=== PATIENT | female | born 1975 | race Two or more races ===

== ENCOUNTER 2021-08-14 19:58 | Emergency (ER) | payer SELFPAY ==
[~2021-08-14] VITALS: Ht 152.4 cm; Wt 67.1 kg
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
--- NOTE | 2021-08-14 21:39 | NUR ---
AT BED SIDE
[2021-08-14] MEDS ORDERED: ONDANSETRON HCL/PF 4 MG/2 ML VIAL ONE (21:53)
[2021-08-14] MEDS ORDERED: MORPHINE SULFATE INJ 4 MG/ML DISP.SYRIN ONE (21:53)
[2021-08-14] MEDS ORDERED: TDAP [DIPH/PERTUSSIS/TET] 0.5 ML VIAL IM ONE ×2 (21:54→22:00)
[2021-08-14] MEDS ORDERED: MORPHINE SULFATE INJ 2 MG/ML DISP.SYRIN IV ONE (22:00)
[2021-08-14] MEDS ORDERED: ONDANSETRON HCL/PF 4 MG/2 ML VIAL IVP ONE (22:00)
[2021-08-14] MEDS ORDERED: GABA-532 PO (23:43)
[2021-08-14] MEDS ORDERED: TRAM50TA2 PO (23:45)
--- NOTE | 2021-08-14 23:54 | NUR ---
Patient discharged to home in stable condition. Written and verbal after care instructions given. Patient verbalizes understanding of instruction.
[2021-08-15 00:13] VITALS: BP 104/53
== END 2021-08-14 23:55 | disposition home or self-care (01) ==
LOC: ER 20:06
DX: S81.012A Laceration without foreign body, left knee, initial encounter (principal); S00.83XA Contusion of other part of head, initial encounter; J34.2 Deviated nasal septum; M25.472 Effusion, left ankle; Y08.89XA Assault by other specified means, initial encounter; Y93.89 Activity, other specified; Y92.89 Other specified places as the place of occurrence of the external cause; Y99.8 Other external cause status
CPT/HCPCS: 70450; 70486; 71045; 73610; 90471; 90715; 96374; 96375; 99285; J2270; J2405

== ENCOUNTER 2021-09-17 13:00 | Emergency (ER) | payer SELFPAY ==
[~2021-09-17] VITALS: Ht 157.5 cm; Wt 63.5 kg
[~2021-09-17 13:00] MED LIST: GABA-532 PO; TRAM50TA2 PO
[2021-09-17 13:11] VITALS: BP 98/77
--- NOTE | 2021-09-17 13:40 | NUR ---
SEEN AND EXAMINED BY
[2021-09-17] MEDS ORDERED: DIAZ5TAB4 PO (13:42)
[2021-09-17] MEDS ORDERED: GABA-532 PO (13:42)
--- NOTE | 2021-09-17 13:56 | NUR ---
Patient discharged to home in stable condition. Written and verbal after care instructions given. Patient verbalizes understanding of instruction.
== END 2021-09-17 14:00 | disposition home or self-care (01) ==
LOC: ER 13:09
DX: M54.2 Cervicalgia (principal); M54.59 Other low back pain; M25.512 Pain in left shoulder

== ENCOUNTER 2021-09-25 17:13 | Emergency (ER) | payer SELFPAY ==
[~2021-09-25] VITALS: Ht 157.5 cm; Wt 65.3 kg
[2021-09-25 17:13] VITALS: BP 124/88
[~2021-09-25 17:13] MED LIST changes: +DIAZ5TAB4 PO
[2021-09-25] MEDS ORDERED: HYDR-4303 PO (18:36)
--- NOTE | 2021-09-25 18:44 | NUR ---
Patient discharged to home in stable condition. Written and verbal after care instructions given. Patient verbalizes understanding of instruction.
== END 2021-09-25 18:48 | disposition home or self-care (01) ==
LOC: ER 17:18
DX: M54.2 Cervicalgia (principal); Z76.0 Encounter for issue of repeat prescription

== ENCOUNTER 2021-10-12 13:30 | Emergency (ER) | payer SELFPAY ==
[~2021-10-12] VITALS: Ht 157.5 cm; Wt 67.1 kg
[~2021-10-12 13:30] MED LIST changes: +HYDR-4303 PO
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
--- NOTE | 2021-10-12 14:10 | NUR ---
AT BEDSIDE FOR EVAL.
--- NOTE | 2021-10-12 14:23 | NUR ---
UNABLE TO ESTABLISHED IV LINE. AWARE.
--- NOTE | 2021-10-12 14:27 | NUR ---
CALLED FOR MIDLINE.
[2021-10-12 14:50] LABS: BASOPHILS % (AUTO) 0.5 % (0.0-2.0); EOSINOPHILS % (AUTO) 0.1 % (0.0-6.0); HEMATOCRIT 33 % (33-45); HEMOGLOBIN 10.6 g/dL (11.5-14.8); LYMPHOCYTES # (AUTO) 1.1 K/uL (0.8-4.8); LYMPHOCYTES % (AUTO) 28.5 % (20.0-44.0); MEAN CORPUSCULAR HGB CONC 32 g/dl (31.0-36.0); MEAN CORPUSCULAR VOLUME 84 fL (82-100); MONOCYTES # (AUTO) 0.4 K/uL (0.1-1.30); NEUTROPHILS # (AUTO) 2.3 K/uL (1.8-8.9); NEUTROPHILS % (AUTO) 60.9 % (43.0-81.0); PLATELET COUNT (AUTO) 291 K/uL (150-450); RED BLOOD CELL COUNT(AUTO) 3.92 MIL/uL (4.0-5.2); WHITE BLOOD COUNT (AUTO) 3.8 K/uL (4.3-11.0)
[2021-10-12] MEDS ORDERED: MORPHINE SULFATE INJ 2 MG/ML DISP.SYRIN IV ONE (15:00)
[2021-10-12] MEDS ORDERED: IOHEXOL-350 100 ML VIAL IV ONE (15:00)
--- NOTE | 2021-10-12 15:00 | NUR ---
TAKEN TO CT
[2021-10-12] MEDS ORDERED: IV NS 0.9% 250 ML IV ONE (15:01)
[2021-10-12] MEDS ORDERED: MORPHINE SULFATE INJ 4 MG/ML DISP.SYRIN ONE (15:05)
[2021-10-12 15:17] LABS: ALANINE AMINOTRANSFERASE 12 U/L (12-78); ALBUMIN 3.5 g/dL (3.4-5.0); ALKALINE PHOSPHATASE 116 U/L (46-116); ASPARTATE AMINOTRANSFERASE 12 U/L (15-37); BILIRUBIN,DIRECT 0.1 mg/dL (0.0-0.2); BILIRUBIN,TOTAL 0.3 mg/dL (0.2-1.0); CALCIUM, SERUM 8.8 mg/dL (8.5-10.1); CARBON DIOXIDE 23 mmol/L (21-32); CHLORIDE 107 mmol/L (98-107); CREATININE 0.8 mg/dL (0.6-1.3); GLUCOSE 109 mg/dL (74-106); LIPASE 289 U/L (73-393); POTASSIUM 3.1 mmol/L (3.5-5.1); SODIUM SERUM 141 mmol/L (136-145); TOTAL PROTEIN, SERUM 7.9 g/dL (6.4-8.2); UREA NITROGEN, BLOOD 17 mg/dL (7-18)
[2021-10-12] MEDS ORDERED: CYCL5TAB PO (15:38)
[2021-10-12] MEDS ORDERED: IBUP-1957 PO (15:38)
[2021-10-12] MEDS ORDERED: KETOROLAC TROMETHAMINE INJ 30 MG/ML VIAL ONE (15:43)
[2021-10-12] MEDS ORDERED: CYCLOBENZAPRINE 10 MG TABLET ONE (15:45)
--- NOTE | 2021-10-12 15:53 | NUR ---
IV removed. Catheter intact and site benign. Pressure and 4x4 applied to site. No bleeding noted.Patient discharged to home in stable condition. Written and verbal after care instructions given. Patient verbalizes understanding of instruction.
[2021-10-12 15:55] VITALS: BP 118/74
[2021-10-12] MEDS ORDERED: KETOROLAC TROMETHAMINE INJ 30 MG/ML VIAL IV ONE (16:00)
[2021-10-12] MEDS ORDERED: CYCLOBENZAPRINE 10 MG TABLET PO ONE (16:00)
== END 2021-10-12 15:55 | disposition home or self-care (01) ==
LOC: ER 13:33
DX: R10.33 Periumbilical pain (principal); M54.9 Dorsalgia, unspecified; Z90.49 Acquired absence of other specified parts of digestive tract; Z79.899 Other long term (current) drug therapy; W18.39XA Other fall on same level, initial encounter; Y93.89 Activity, other specified; Y92.89 Other specified places as the place of occurrence of the external cause; Y99.8 Other external cause status
CPT/HCPCS: 36415; 71275; 74174; 80048; 80076; 83690; 84484; 85025; 93005; 96374; 99291; J2270; J7050; Q9967; J1885

== ENCOUNTER 2021-12-02 20:13 | Emergency (ER) | payer SELFPAY ==
[~2021-12-02] VITALS: Ht 157.5 cm; Wt 66.2 kg
[~2021-12-02 20:13] MED LIST changes: +CYCL5TAB PO; +IBUP-1957 PO
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
[2021-12-02] MEDS ORDERED: ONDANSETRON 4 MG TAB.RAPDIS ONE (20:40)
[2021-12-02] MEDS ORDERED: HYDROCODONE/APAP 5/325MG TABLET ONE ×2 (20:40→23:31)
[2021-12-02] MEDS ORDERED: predniSONE 20 MG TABLET ONE (20:42)
--- NOTE | 2021-12-02 20:45 | NUR ---
NOTED ORDER FOR LUMBAR CT W/O CONTRAST. PT SIGNED WAIVER, STATED THERE IS NO WAY SHE IS
[2021-12-02] MEDS ORDERED: ONDANSETRON HCL 4 MG/5 ML SOLUTION PO ONE (21:00)
[2021-12-02] MEDS ORDERED: HYDROCODONE/APAP 5/325MG TABLET PO ONE ×2 (21:00→23:30)
[2021-12-02] MEDS ORDERED: predniSONE 50 MG TABLET PO ONE (21:00)
--- NOTE | 2021-12-02 21:09 | NUR ---
PT TAKEN FOR CT SCAN
--- NOTE | 2021-12-02 21:21 | NUR ---
PT BACK TO BED [address]
[2021-12-02] MEDS ORDERED: HYDR-4303 PO (21:48)
[2021-12-02] MEDS ORDERED: PRED50TA PO (21:48)
[2021-12-02] MEDS ORDERED: HYDR-3972 PO (21:48)
--- NOTE | 2021-12-02 23:43 | NUR ---
Patient discharged to home in stable condition. Written and verbal after care instructions given. Patient verbalizes understanding of instruction.
[2021-12-02 23:44] VITALS: BP 141/64
== END 2021-12-02 23:44 | disposition home or self-care (01) ==
LOC: ER 20:24
DX: M54.41 Lumbago with sciatica, right side (principal); Z90.49 Acquired absence of other specified parts of digestive tract; Z88.6 Allergy status to analgesic agent; Z79.899 Other long term (current) drug therapy
CPT/HCPCS: 72131; 99284; J7512; Q0162

== ENCOUNTER 2021-12-11 15:17 | Emergency (ER) | payer SELFPAY ==
[~2021-12-11] VITALS: Ht 157.5 cm; Wt 66.2 kg
[~2021-12-11 15:17] MED LIST changes: +HYDR-3972 PO; -HYDR-4303 PO; +PRED50TA PO
--- NOTE | 2021-12-11 15:45 | NUR ---
CAME IN FOR EPIGASTRIC AND LOWER BACK PAIN x 2 DAYS. AMBULATORY NOT IN DISTRESS.
--- NOTE | 2021-12-11 17:10 | NUR ---
IV LINE R WRIST G22. BLOOD DRAWN FOR INVESTIGATION SENT TO LAB
[2021-12-11] MEDS ORDERED: MORPHINE SULFATE INJ 2 MG/ML DISP.SYRIN IV ONE ×2 (17:30→18:30)
[2021-12-11 17:46] LABS: BASOPHILS % (AUTO) 0.8 % (0.0-2.0); EOSINOPHILS % (AUTO) 2.2 % (0.0-6.0); HEMATOCRIT 30 % (33-45); HEMOGLOBIN 9.2 g/dL (11.5-14.8); LYMPHOCYTES % (AUTO) 32.4 % (20.0-44.0); MEAN CORPUSCULAR HGB CONC 31 g/dl (31.0-36.0); MEAN CORPUSCULAR VOLUME 84 fL (82-100); MONOCYTES # (AUTO) 0.3 K/uL (0.1-1.30); MONOCYTES % (AUTO) 10.2 % (2.0-12.0); NEUTROPHILS # (AUTO) 1.7 K/uL (1.8-8.9); NEUTROPHILS % (AUTO) 54.4 % (43.0-81.0); PLATELET COUNT (AUTO) 304 K/uL (150-450); WHITE BLOOD COUNT (AUTO) 3.2 K/uL (4.3-11.0)
[2021-12-11 18:05] LABS: ALBUMIN 3.5 g/dL (3.4-5.0); BILIRUBIN,TOTAL 0.2 mg/dL (0.2-1.0); CALCIUM, SERUM 8.3 mg/dL (8.5-10.1); CREATININE 0.7 mg/dL (0.6-1.3); POTASSIUM 3.2 mmol/L (3.5-5.1); TOTAL PROTEIN, SERUM 7.3 g/dL (6.4-8.2)
[2021-12-11] MEDS ORDERED: MORPHINE SULFATE INJ 4 MG/ML DISP.SYRIN ONE (18:18)
[2021-12-11] MEDS ORDERED: ONDANSETRON HCL/PF - ER 4 MG/2 ML VIAL IV ONE (18:30)
[2021-12-11] MEDS ORDERED: ONDANSETRON HCL/PF 4 MG/2 ML VIAL ONE (18:35)
--- NOTE | 2021-12-11 18:45 | NUR ---
CONTACTED RADIOLOGIST FOR CT ABDOMEN AND PELVIS
--- NOTE | 2021-12-11 18:52 | NUR ---
PATIENT WENT FOR CT ABDOMEN AND PELVIS
[2021-12-11] MEDS ORDERED: GABA600T12 PO (20:00)
--- NOTE | 2021-12-11 20:09 | NUR ---
IV removed. Catheter intact and site benign. Pressure and 4x4 applied to site. No bleeding noted.
--- NOTE | 2021-12-11 20:16 | NUR ---
Patient discharged to home in stable condition. Written and verbal after care instructions given. Patient verbalizes understanding of instruction. PT ambulatory with a steady gait
[2021-12-11 20:21] VITALS: BP 110/65
== END 2021-12-11 20:22 | disposition home or self-care (01) ==
LOC: ER 15:22
DX: R10.32 Left lower quadrant pain (principal); Z76.5 Malingerer [conscious simulation]; Z90.89 Acquired absence of other organs; Z88.8 Allergy status to other drugs, medicaments and biological substances; Z79.52 Long term (current) use of systemic steroids; Z79.891 Long term (current) use of opiate analgesic; Z79.1 Long term (current) use of non-steroidal anti-inflammatories (NSAID); Z79.899 Other long term (current) drug therapy
CPT/HCPCS: 36415; 74176; 80048; 80076; 83690; 85025; 96374; 96375; 99284; J2270; J2405